=== PATIENT | female | born 1950 | race African-American/Black ===

== ENCOUNTER 2017-09-23 09:38 | Inpatient (IN) ==
[2017-09-23 11:10] LABS: Basophils % 0.5 % (0.0-0.8); Eosinophils # 0.1 10*3/uL (0.0-0.87); Eosinophils % 1.3 % (0.00-10.9); Hemoglobin 10.9 GM/DL (12.0-16.0); Immature Granulocytes % 0.5 %; Immature Granulocytes Absolute 0.03 #; Lymphocytes # 1.4 10*3/uL (1.4-4.0); Lymphocytes % 22.7 % (21.3-54.2); Mean Corpuscular HGB Conc 34.1 GM/DL (32-36); Mean Corpuscular Hemoglobin 32 PG (27-34); Mean Corpuscular Volume 94.1 FL (87-102); Mean Platelet Volume 11.1 FL (9.6-12.0); Monocytes # 0.6 10*3/uL (0.11-0.8); Monocytes % 9.6 % (1.7-12.7); Neutrophils % 65.4 % (38.7-73.9); Platelet Count 238 T/CUMM (130-400); White Blood Count 6.2 T/CUMM (4-12)
[2017-09-23 11:55] LABS: Albumin 2.9 G/DL (3.4-5.0); Bilirubin,Total 0.4 MG/DL (0.2-1.0); Osmolality,Calculated 287.7 MOS/KG (273-304); Total Protein 7.1 G/DL (6.4-8.3)
[2017-09-23 11:57] LABS: Calcium 5.4 MG/DL (8.5-10.1); Potassium 2.5 MMOL/L (3.5-5.1)
[2017-09-23] MEDS: POTASSIUM CHLORIDE 20 MEQ TABLET PO SCH ×2 (13:27→21:14)
[2017-09-23] MEDS ORDERED: GLUCAGON 1 MG VIAL IM PRN (13:35)
[2017-09-23] MEDS ORDERED: POLYETHYLENE GLYCOL POWDER 17 GM PACK PO PRN (13:37)
[2017-09-23] MEDS ORDERED: ACETAMINOPHEN 325 MG TABLET PO PRN (13:44)
[2017-09-23] MEDS ORDERED: ONDANSETRON 4 MG/2 ML VIAL IV PRN (13:44)
[2017-09-23] MEDS: SODIUM CHLORIDE 0.45% 1,000 ML IV SCH (15:24)
[2017-09-23] MEDS: SODIUM CHLOR 0.45% KCL 20 MEQ 20 MEQ/1,000 ML BAG IV SCH (15:24)
[2017-09-23] MEDS: BACITRACIN OINT 0.9 GM PACK TOP SCH (15:41)
[2017-09-23] MEDS: SODIUM HYPOCHLORITE 0.25% IRRIG 473 ML BOTTLE TOP SCH (15:41)
[2017-09-23] MEDS: SKIN HEALING OINT (AQUAPHOR) 50 GM TUBE TOP SCH (15:41)
[2017-09-23] MEDS: HYDROmorphone 2 MG/1 ML VIAL IV PRN (16:35)
[2017-09-23] MEDS ORDERED: LISINOPRIL 5 MG TABLET PO SCH (17:01)
[2017-09-23] MEDS ORDERED: hydroCHLOROthiazide 12.5 MG CAPSULE PO SCH (17:03)
[2017-09-23] MEDS: hydroCHLOROthiazide 12.5 MG CAPSULE PO SCH (17:18)
[2017-09-23] MEDS: LISINOPRIL 5 MG TABLET PO SCH (17:19)
[2017-09-23] MEDS: INSULIN REGULAR 100 UNIT/ML SUBCUT SCH ×2 (17:28→21:12)
[2017-09-23] MEDS: metFORMIN 500 MG TABLET PO SCH (17:30)
[2017-09-23] MEDS: sitaGLIPtin 100 MG TABLET PO SCH (17:30)
[2017-09-23] MEDS: DOCUSATE SODIUM 100 MG CAPSULE PO SCH (18:19)
[2017-09-23] MEDS: LORATADINE 10 MG TABLET PO SCH (18:19)
[2017-09-23] MEDS: ChlordiazePOXIDE/CLIDINIUM 5-2.5 MG CAPSULE PO SCH (18:21)
[2017-09-23] MEDS: LIDOCAINE 5% PATCH TRANSDERM SCH (18:21)
[2017-09-23] MEDS: LINACLOTIDE 145 MCG CAPSULE PO SCH (18:22)
[2017-09-23] MEDS: MELOXICAM 7.5 MG TABLET PO SCH (18:22)
[2017-09-23] MEDS: GABAPENTIN 300 MG CAPSULE PO SCH (18:23)
[2017-09-23] MEDS: CYPROHEPTADINE 4 MG TABLET PO SCH (18:23)
[2017-09-23] MEDS: PANTOPRAZOLE 40 MG TABLET PO SCH (18:24)
[2017-09-23] MEDS: ALLOPURINOL 100 MG TABLET PO SCH (18:24)
[2017-09-23] MEDS: tiZANidine 4 MG TABLET PO SCH (18:24)
[2017-09-23] MEDS: LEVOTHYROXINE 100 MCG VIAL IV SCH (18:26)
[2017-09-23] MEDS ORDERED: TRIAMCINOLONE 0.5% TOP SCH (21:00)
[2017-09-23] MEDS: MINERAL OIL 30 ML UDCUP PO SCH (21:14)
[2017-09-23] MEDS: ALUMINUM/MAGNES/SIMETH MAX STR 30 ML UDCUP PO SCH (21:14)
[2017-09-24] MEDS: SODIUM CHLOR 0.45% KCL 20 MEQ 20 MEQ/1,000 ML BAG IV SCH ×2 (03:27→17:29)
[2017-09-24] MEDS: SODIUM CHLORIDE 0.45% 1,000 ML IV SCH ×2 (03:32→21:00)
[2017-09-24 05:30] LABS: Basophils % 0.7 % (0.0-0.8); Eosinophils # 0.1 10*3/uL (0.0-0.87); Eosinophils % 1.3 % (0.00-10.9); Hematocrit 28.2 VOL% (35.7-47.0); Hemoglobin 9.3 GM/DL (12.0-16.0); Immature Granulocytes % 0.4 %; Immature Granulocytes Absolute 0.02 #; Lymphocytes # 1.5 10*3/uL (1.4-4.0); Lymphocytes % 27.9 % (21.3-54.2); Mean Corpuscular Hemoglobin 31 PG (27-34); Mean Corpuscular Volume 95.3 FL (87-102); Mean Platelet Volume 11.1 FL (9.6-12.0); Monocytes # 0.8 10*3/uL (0.11-0.8); Monocytes % 13.7 % (1.7-12.7); Neutrophils # 3.1 10*3/uL (1.4-7.4); Platelet Count 206 T/CUMM (130-400); Red Blood Count 2.96 MC/CUMM (3.8-5.5); Red Cell Distribution Width 15.8 % (9.3-17.3); White Blood Count 5.5 T/CUMM (4-12)
[2017-09-24] MEDS: LEVOTHYROXINE 100 MCG VIAL IV SCH (06:06)
[2017-09-24 06:31] LABS: Alanine Aminotransferase 18 U/L (13-56); Albumin 2.5 G/DL (3.4-5.0); Alkaline Phosphatase 94 U/L (45-117); Aspartate Amino Transferase 23 U/L (0-37); Bilirubin,Total < 0.39 MG/DL (0.2-1.0); Blood Urea Nitrogen 12 MG/DL (7-18); Glucose 75 MG/DL (74-106); Sodium 143 MMOL/L (136-145); Total Protein 5.7 G/DL (6.4-8.3)
[2017-09-24 06:35] LABS: Calcium < 5.0 MG/DL (8.5-10.1)
[2017-09-24] MEDS: INSULIN REGULAR 100 UNIT/ML SUBCUT SCH ×4 (06:36→21:00)
[2017-09-24] MEDS ORDERED: CYCLOBENZAPRINE 10 MG TABLET PO PRN (07:21)
[2017-09-24] MEDS ORDERED: tiZANidine 4 MG TABLET PO PRN (07:21)
[2017-09-24] MEDS ORDERED: MAGNESIUM CITRATE 300 ML BOTTLE PO ONE (07:30)
[2017-09-24] MEDS ORDERED: PANTOPRAZOLE 40 MG TABLET PO SCH (09:00)
[2017-09-24] MEDS ORDERED: NON-FORMULARY MEDICATION (Esomeprazole Magnesium [Nexium] 40 MG) PO SCH (09:00)
[2017-09-24] MEDS ORDERED: hydroCHLOROthiazide 12.5 MG CAPSULE PO SCH (09:00)
[2017-09-24] MEDS ORDERED: LISINOPRIL 5 MG TABLET PO SCH (09:00)
[2017-09-24] MEDS: DOCUSATE SODIUM 100 MG CAPSULE PO SCH (09:12)
[2017-09-24] MEDS: LORATADINE 10 MG TABLET PO SCH (09:12)
[2017-09-24] MEDS: metFORMIN 500 MG TABLET PO SCH (09:13)
[2017-09-24] MEDS: COLCHICINE 0.6 MG TABLET PO SCH (09:13)
[2017-09-24] MEDS: hydroCHLOROthiazide 12.5 MG CAPSULE PO SCH (09:14)
[2017-09-24] MEDS: POTASSIUM CHLORIDE 20 MEQ TABLET PO SCH ×2 (09:14→20:55)
[2017-09-24] MEDS: sitaGLIPtin 100 MG TABLET PO SCH (09:14)
[2017-09-24] MEDS: ChlordiazePOXIDE/CLIDINIUM 5-2.5 MG CAPSULE PO SCH (09:15)
[2017-09-24] MEDS: LIDOCAINE 5% PATCH TRANSDERM SCH (09:15)
[2017-09-24] MEDS: ENOXAPARIN 30 MG/0.3 ML SYRINGE SUBCUT SCH (09:16)
[2017-09-24] MEDS: LINACLOTIDE 145 MCG CAPSULE PO SCH (09:16)
[2017-09-24] MEDS: PREGABALIN 50 MG CAPSULE PO SCH ×2 (09:17→20:55)
[2017-09-24] MEDS: MELOXICAM 7.5 MG TABLET PO SCH (09:17)
[2017-09-24] MEDS: GABAPENTIN 300 MG CAPSULE PO SCH (09:18)
[2017-09-24] MEDS: CYPROHEPTADINE 4 MG TABLET PO SCH (09:19)
[2017-09-24] MEDS: LISINOPRIL 20 MG TABLET PO SCH (09:19)
[2017-09-24] MEDS: PANTOPRAZOLE 40 MG TABLET PO SCH (09:20)
[2017-09-24] MEDS: CALCIUM CARBONATE CHEW 500 MG TABLET PO SCH ×2 (09:21→20:54)
[2017-09-24] MEDS: LEVOTHYROXINE 200 MCG TABLET PO SCH (09:21)
[2017-09-24] MEDS: PENTOXIFYLLINE 400 MG TABLET PO SCH ×3 (09:21→20:55)
[2017-09-24] MEDS: ALLOPURINOL 100 MG TABLET PO SCH (09:23)
[2017-09-24] MEDS: BACITRACIN OINT 0.9 GM PACK TOP SCH (09:30)
[2017-09-24] MEDS: LISINOPRIL 5 MG TABLET PO SCH (09:36)
[2017-09-24] MEDS: tiZANidine 4 MG TABLET PO SCH (09:37)
[2017-09-24] MEDS: ALUMINUM/MAGNES/SIMETH MAX STR 30 ML UDCUP PO SCH ×2 (10:49→20:55)
[2017-09-24] MEDS: SODIUM HYPOCHLORITE 0.25% IRRIG 473 ML BOTTLE TOP SCH (13:00)
[2017-09-24] MEDS: SKIN HEALING OINT (AQUAPHOR) 50 GM TUBE TOP SCH (13:00)
[2017-09-24] MEDS: HYDROmorphone 2 MG/1 ML VIAL IV PRN (14:53)
[2017-09-24] MEDS: MINERAL OIL 30 ML UDCUP PO SCH (20:53)
[2017-09-25] MEDS: HYDROmorphone 2 MG/1 ML VIAL IV PRN (01:01)
[2017-09-25] MEDS: LEVOTHYROXINE 200 MCG TABLET PO SCH ×2 (06:10→10:19)
[2017-09-25] MEDS: LEVOTHYROXINE 100 MCG VIAL IV SCH ×2 (06:10→06:16)
[2017-09-25] MEDS: SODIUM CHLORIDE 0.45% 1,000 ML IV SCH (06:11)
[2017-09-25 06:16] LABS: Basophils % 0.4 % (0.0-0.8); Eosinophils # 0.1 10*3/uL (0.0-0.87); Hematocrit 29.2 VOL% (35.7-47.0); Hemoglobin 9.7 GM/DL (12.0-16.0); Immature Granulocytes % 0.4 %; Immature Granulocytes Absolute 0.02 #; Lymphocytes # 1.4 10*3/uL (1.4-4.0); Mean Corpuscular HGB Conc 33.2 GM/DL (32-36); Mean Corpuscular Hemoglobin 32 PG (27-34); Mean Corpuscular Volume 95.1 FL (87-102); Mean Platelet Volume 11.6 FL (9.6-12.0); Monocytes # 0.7 10*3/uL (0.11-0.8); Monocytes % 14.3 % (1.7-12.7); Neutrophils % 56.9 % (38.7-73.9); Platelet Count 199 T/CUMM (130-400); Red Blood Count 3.07 MC/CUMM (3.8-5.5); Red Cell Distribution Width 15.7 % (9.3-17.3); White Blood Count 5.2 T/CUMM (4-12)
[2017-09-25 06:54] LABS: Osmolality,Calculated 278.3 MOS/KG (273-304); Potassium 3.9 MMOL/L (3.5-5.1)
[2017-09-25 06:58] LABS: Albumin 2.5 G/DL (3.4-5.0); Bilirubin,Total 0.6 MG/DL (0.2-1.0); Osmolality,Calculated 281.1 MOS/KG (273-304); Total Protein 6.1 G/DL (6.4-8.3)
[2017-09-25 07:04] LABS: Calcium 5.7 MG/DL (8.5-10.1)
[2017-09-25] MEDS ORDERED: VANCOMYCIN 500 MG VIAL ONE (07:13)
[2017-09-25] MEDS ORDERED: THROMBIN TOPICAL (RECOMBINANT) 5,000 UNIT VIAL TOP ONE (07:14)
[2017-09-25] MEDS ORDERED: HEPARIN 5,000 UNIT/1 ML VIAL ONE (07:15)
[2017-09-25] MEDS: INSULIN REGULAR 100 UNIT/ML SUBCUT SCH ×4 (07:15→20:47)
[2017-09-25] MEDS: SODIUM CHLOR 0.45% KCL 20 MEQ 20 MEQ/1,000 ML BAG IV SCH (08:00)
[2017-09-25] MEDS: LISINOPRIL 20 MG TABLET PO SCH (08:00)
[2017-09-25] MEDS ORDERED: VANCOMYCIN INJ 500 MG in SODIUM CHLORIDE 0.9% 100 ML IV ONE (09:00)
[2017-09-25] MEDS: LORATADINE 10 MG TABLET PO SCH (10:16)
[2017-09-25] MEDS: SKIN HEALING OINT (AQUAPHOR) 50 GM TUBE TOP SCH (10:16)
[2017-09-25] MEDS: BACITRACIN OINT 0.9 GM PACK TOP SCH (10:16)
[2017-09-25] MEDS: COLCHICINE 0.6 MG TABLET PO SCH (10:17)
[2017-09-25] MEDS: DOCUSATE SODIUM 100 MG CAPSULE PO SCH (10:17)
[2017-09-25] MEDS: SODIUM HYPOCHLORITE 0.25% IRRIG 473 ML BOTTLE TOP SCH (10:17)
[2017-09-25] MEDS: POTASSIUM CHLORIDE 20 MEQ TABLET PO SCH ×2 (10:17→21:22)
[2017-09-25] MEDS: hydroCHLOROthiazide 12.5 MG CAPSULE PO SCH (10:17)
[2017-09-25] MEDS: sitaGLIPtin 100 MG TABLET PO SCH (10:17)
[2017-09-25] MEDS: ChlordiazePOXIDE/CLIDINIUM 5-2.5 MG CAPSULE PO SCH (10:18)
[2017-09-25] MEDS: PREGABALIN 50 MG CAPSULE PO SCH ×2 (10:18→21:22)
[2017-09-25] MEDS: ENOXAPARIN 30 MG/0.3 ML SYRINGE SUBCUT SCH (10:18)
[2017-09-25] MEDS: MELOXICAM 7.5 MG TABLET PO SCH (10:18)
[2017-09-25] MEDS: LINACLOTIDE 145 MCG CAPSULE PO SCH (10:18)
[2017-09-25] MEDS: LIDOCAINE 5% PATCH TRANSDERM SCH (10:18)
[2017-09-25] MEDS: ALUMINUM/MAGNES/SIMETH MAX STR 30 ML UDCUP PO SCH ×2 (10:19→21:23)
[2017-09-25] MEDS: GABAPENTIN 300 MG CAPSULE PO SCH (10:19)
[2017-09-25] MEDS: CYPROHEPTADINE 4 MG TABLET PO SCH (10:19)
[2017-09-25] MEDS: PANTOPRAZOLE 40 MG TABLET PO SCH (10:19)
[2017-09-25] MEDS: PENTOXIFYLLINE 400 MG TABLET PO SCH ×3 (10:19→21:22)
[2017-09-25] MEDS: CALCIUM CARBONATE CHEW 500 MG TABLET PO SCH ×2 (10:20→21:24)
[2017-09-25] MEDS: tiZANidine 4 MG TABLET PO SCH (10:20)
[2017-09-25] MEDS: ALLOPURINOL 100 MG TABLET PO SCH (10:20)
[2017-09-25] MEDS: POTASSIUM CHLORIDE INJ 10 MEQ in SODIUM CHLORIDE 0.45% 1,000 ML IV SCH (12:50)
[2017-09-25] MEDS: ERGOCALCIFEROL 50,000 UNIT CAPSULE PO SCH (13:00)
[2017-09-25] MEDS: DEXTROSE 50% 25 GM/50 ML VIAL IV PRN ×2 (13:18→16:30)
[2017-09-25] MEDS ORDERED: DEXTROSE 50% 25 GM/50 ML VIAL IV ONE (13:18)
[2017-09-25 13:20] LABS: Apearance,Urine CLEAR (Clear); Bilirubin,Urine Negative (Negative); Blood, Urine Negative (Negative); Glucose,Urine (UA) Negative (Negative); Ketones,Urine Negative (Negative); Nitrite,Urine Negative (Negative); Protein,Urine Negative; RBC,Urine <1 /HPF (0-4); Urine Color Straw (Yellow); Urine Specific Gravity 1.005 (1.001-1.035); Urine Urobilinogen < 2.0 EU/DL (0.2-1.0); WBC,Urine <1 /HPF (0-6)
[2017-09-25 13:26] LABS: Hematocrit 28.4 VOL% (35.7-47.0); Hemoglobin 9.4 GM/DL (12.0-16.0)
[2017-09-25] MEDS ORDERED: HEPARIN 10,000 UNIT/10 ML VIAL ONE (13:29)
[2017-09-25] MEDS ORDERED: PROPOFOL 200 MG/20 ML VIAL IV ONE (13:29)
[2017-09-25] MEDS ORDERED: SEVOFLURANE 1 UNIT/15 MINUTE INH ONE (13:29)
[2017-09-25] MEDS ORDERED: PHENYLEPHRINE 10 MG/1 ML VIAL IV ONE (13:30)
[2017-09-25] MEDS ORDERED: ONDANSETRON 4 MG/2 ML VIAL ONE (13:30)
[2017-09-25] MEDS ORDERED: fentaNYL 100 MCG/2 ML VIAL ONE (13:30)
[2017-09-25] MEDS ORDERED: SODIUM CHLORIDE 0.9% 100 ML IV ONE (13:30)
[2017-09-25] MEDS ORDERED: PROTAMINE SULFATE 50 MG/5 ML VIAL IV ONE (13:30)
[2017-09-25] MEDS ORDERED: ROCURONIUM 100 MG/10 ML VIAL IV ONE (13:30)
[2017-09-25] MEDS ORDERED: LACTATED RINGERS 1,000 ML IV ONE (13:30)
[2017-09-25 14:01] LABS: Osmolality,Calculated 283.8 MOS/KG (273-304); Potassium 3.8 MMOL/L (3.5-5.1)
[2017-09-25 14:28] LABS: Calcium 5.6 MG/DL (8.5-10.1)
[2017-09-25] MEDS: MORPHINE 4 MG/1 ML VIAL IV PRN ×3 (16:46→22:36)
[2017-09-25] MEDS: CLINDAMYCIN INJ 600 MG in PREMIX 1 EACH IV SCH ×2 (16:50→19:31)
[2017-09-25] MEDS: MAGNESIUM SULFATE 1 GM/2 ML VIAL IM SCH ×2 (16:50→21:24)
[2017-09-25] MEDS: ONDANSETRON 4 MG/2 ML VIAL IV PRN (16:50)
[2017-09-25] MEDS: CALCIUM GLUCONATE 2,000 MG in SODIUM CHLORIDE 0.9% 100 ML IV SCH ×2 (17:20→23:11)
[2017-09-25] MEDS: MINERAL OIL 30 ML UDCUP PO SCH (21:23)
[2017-09-26] MEDS: CLINDAMYCIN INJ 600 MG in PREMIX 1 EACH IV SCH ×4 (01:04→20:29)
[2017-09-26] MEDS: MORPHINE 4 MG/1 ML VIAL IV PRN ×3 (02:40→14:20)
[2017-09-26] MEDS: diphenhydrAMINE CAP 25 MG CAPSULE PO PRN ×2 (04:49→15:57)
[2017-09-26 05:15] LABS: Hematocrit 28.2 VOL% (35.7-47.0); Hemoglobin 9.7 GM/DL (12.0-16.0)
[2017-09-26 05:18] LABS: Basophils % 0.4 % (0.0-0.8); Eosinophils # 0.1 10*3/uL (0.0-0.87); Hemoglobin 9.6 GM/DL (12.0-16.0); Immature Granulocytes % 0.4 %; Immature Granulocytes Absolute 0.03 #; Lymphocytes # 0.9 10*3/uL (1.4-4.0); Lymphocytes % 12.2 % (21.3-54.2); Mean Corpuscular HGB Conc 33.1 GM/DL (32-36); Mean Corpuscular Hemoglobin 32 PG (27-34); Mean Corpuscular Volume 95.4 FL (87-102); Mean Platelet Volume 11.4 FL (9.6-12.0); Monocytes # 0.9 10*3/uL (0.11-0.8); Monocytes % 11.4 % (1.7-12.7); Neutrophils # 5.8 10*3/uL (1.4-7.4); Neutrophils % 74.6 % (38.7-73.9); Platelet Count 210 T/CUMM (130-400); Red Blood Count 3.04 MC/CUMM (3.8-5.5); Red Cell Distribution Width 15.8 % (9.3-17.3); White Blood Count 7.7 T/CUMM (4-12)
[2017-09-26] MEDS: CALCIUM GLUCONATE 2,000 MG in SODIUM CHLORIDE 0.9% 100 ML IV SCH (05:29)
[2017-09-26] MEDS: POTASSIUM CHLORIDE INJ 10 MEQ in SODIUM CHLORIDE 0.45% 1,000 ML IV SCH ×2 (05:30→08:00)
[2017-09-26 05:45] LABS: Calcium 7.1 MG/DL (8.5-10.1); Osmolality,Calculated 271.8 MOS/KG (273-304); Potassium 4.9 MMOL/L (3.5-5.1)
[2017-09-26 05:57] LABS: Calcium 7.1 MG/DL (8.5-10.1); Potassium 4.9 MMOL/L (3.5-5.1); Thyroid Stimulating Hormone 9.03 uIU/ml (0.358-3.74)
[2017-09-26] MEDS: INSULIN REGULAR 100 UNIT/ML SUBCUT SCH ×4 (08:00→20:29)
[2017-09-26] MEDS: LEVOTHYROXINE 200 MCG TABLET PO SCH (08:24)
[2017-09-26] MEDS: tiZANidine 4 MG TABLET PO SCH (08:24)
[2017-09-26] MEDS: COLCHICINE 0.6 MG TABLET PO SCH (08:25)
[2017-09-26] MEDS: CALCIUM CARBONATE CHEW 500 MG TABLET PO SCH ×2 (08:25→20:26)
[2017-09-26] MEDS: CLOPIDOGREL 75 MG TABLET PO SCH (08:26)
[2017-09-26] MEDS: PENTOXIFYLLINE 400 MG TABLET PO SCH ×3 (08:26→20:26)
[2017-09-26] MEDS: LISINOPRIL 20 MG TABLET PO SCH (08:26)
[2017-09-26] MEDS: PANTOPRAZOLE 40 MG TABLET PO SCH (08:27)
[2017-09-26] MEDS: PREGABALIN 50 MG CAPSULE PO SCH ×2 (08:27→20:26)
[2017-09-26] MEDS: ALLOPURINOL 100 MG TABLET PO SCH (08:28)
[2017-09-26] MEDS: LORATADINE 10 MG TABLET PO SCH (08:28)
[2017-09-26] MEDS: DOCUSATE SODIUM 100 MG CAPSULE PO SCH (08:28)
[2017-09-26] MEDS: GABAPENTIN 300 MG CAPSULE PO SCH (08:29)
[2017-09-26] MEDS: ASPIRIN CHEW 81 MG TABLET PO SCH (08:29)
[2017-09-26] MEDS: POTASSIUM CHLORIDE 20 MEQ TABLET PO SCH (08:29)
[2017-09-26] MEDS: MELOXICAM 7.5 MG TABLET PO SCH (08:30)
[2017-09-26] MEDS: ChlordiazePOXIDE/CLIDINIUM 5-2.5 MG CAPSULE PO SCH (08:30)
[2017-09-26] MEDS: LIDOCAINE 5% PATCH TRANSDERM SCH ×2 (08:30→11:30)
[2017-09-26] MEDS: LINACLOTIDE 145 MCG CAPSULE PO SCH (08:30)
[2017-09-26] MEDS: ERGOCALCIFEROL 50,000 UNIT CAPSULE PO SCH (08:31)
[2017-09-26] MEDS: ALUMINUM/MAGNES/SIMETH MAX STR 30 ML UDCUP PO SCH ×2 (08:56→20:26)
[2017-09-26] MEDS ORDERED: ENOXAPARIN 40 MG/0.4 ML SYRINGE SUBCUT SCH (09:00)
[2017-09-26] MEDS: SKIN HEALING OINT (AQUAPHOR) 50 GM TUBE TOP SCH (11:30)
[2017-09-26] MEDS: SODIUM HYPOCHLORITE 0.25% IRRIG 473 ML BOTTLE TOP SCH (11:30)
[2017-09-26] MEDS: BACITRACIN OINT 0.9 GM PACK TOP SCH (11:30)
[2017-09-26] MEDS: MEPERIDINE 25 MG/1 ML VIAL IV PRN (20:26)
[2017-09-26] MEDS: MINERAL OIL 30 ML UDCUP PO SCH (20:27)
[2017-09-27] MEDS: CLINDAMYCIN INJ 600 MG in PREMIX 1 EACH IV SCH (01:11)
[2017-09-27 05:23] LABS: Basophils % 0.3 % (0.0-0.8); Eosinophils % 0.4 % (0.00-10.9); Hematocrit 25.5 VOL% (35.7-47.0); Hematocrit 25.6 VOL% (35.7-47.0); Hemoglobin 8.5 GM/DL (12.0-16.0); Hemoglobin 8.7 GM/DL (12.0-16.0); Immature Granulocytes % 1.3 %; Lymphocytes # 1.2 10*3/uL (1.4-4.0); Lymphocytes % 15.2 % (21.3-54.2); Mean Corpuscular HGB Conc 34.1 GM/DL (32-36); Mean Corpuscular Hemoglobin 33 PG (27-34); Mean Corpuscular Volume 95.9 FL (87-102); Mean Platelet Volume 11.5 FL (9.6-12.0); Monocytes # 0.9 10*3/uL (0.11-0.8); Monocytes % 11.4 % (1.7-12.7); Neutrophils # 5.5 10*3/uL (1.4-7.4); Neutrophils % 71.4 % (38.7-73.9); Platelet Count 185 T/CUMM (130-400); Red Blood Count 2.66 MC/CUMM (3.8-5.5); Red Cell Distribution Width 15.8 % (9.3-17.3); White Blood Count 7.6 T/CUMM (4-12)
[2017-09-27 05:50] LABS: Calcium 7.7 MG/DL (8.5-10.1); Potassium 5.6 MMOL/L (3.5-5.1)
[2017-09-27] MEDS: ONDANSETRON 4 MG/2 ML VIAL IV PRN (06:05)
[2017-09-27] MEDS: MEPERIDINE 25 MG/1 ML VIAL IV PRN ×3 (06:05→19:12)
[2017-09-27] MEDS: INSULIN REGULAR 100 UNIT/ML SUBCUT SCH ×4 (08:32→21:03)
[2017-09-27] MEDS: SKIN HEALING OINT (AQUAPHOR) 50 GM TUBE TOP SCH (09:13)
[2017-09-27] MEDS: BACITRACIN OINT 0.9 GM PACK TOP SCH (09:13)
[2017-09-27] MEDS: LISINOPRIL 20 MG TABLET PO SCH (10:38)
[2017-09-27] MEDS: DOCUSATE SODIUM 100 MG CAPSULE PO SCH (10:38)
[2017-09-27] MEDS: PENTOXIFYLLINE 400 MG TABLET PO SCH ×3 (10:38→20:55)
[2017-09-27] MEDS: ERGOCALCIFEROL 50,000 UNIT CAPSULE PO SCH (10:38)
[2017-09-27] MEDS: PREGABALIN 50 MG CAPSULE PO SCH ×2 (10:38→20:55)
[2017-09-27] MEDS: ChlordiazePOXIDE/CLIDINIUM 5-2.5 MG CAPSULE PO SCH (10:38)
[2017-09-27] MEDS: CALCIUM CARBONATE CHEW 500 MG TABLET PO SCH ×2 (10:38→20:56)
[2017-09-27] MEDS: LEVOTHYROXINE 200 MCG TABLET PO SCH (10:39)
[2017-09-27] MEDS: CLOPIDOGREL 75 MG TABLET PO SCH (10:39)
[2017-09-27] MEDS: CIPROFLOXACIN 500 MG TABLET PO SCH ×2 (10:39→20:55)
[2017-09-27] MEDS: tiZANidine 4 MG TABLET PO SCH (10:39)
[2017-09-27] MEDS: ASPIRIN CHEW 81 MG TABLET PO SCH (10:39)
[2017-09-27] MEDS: GABAPENTIN 300 MG CAPSULE PO SCH (10:39)
[2017-09-27] MEDS: LORATADINE 10 MG TABLET PO SCH (10:39)
[2017-09-27] MEDS: ALLOPURINOL 100 MG TABLET PO SCH (10:39)
[2017-09-27] MEDS: COLCHICINE 0.6 MG TABLET PO SCH (10:40)
[2017-09-27] MEDS: ALUMINUM/MAGNES/SIMETH MAX STR 30 ML UDCUP PO SCH ×2 (10:40→20:56)
[2017-09-27] MEDS: PANTOPRAZOLE 40 MG TABLET PO SCH (10:40)
[2017-09-27] MEDS: MELOXICAM 7.5 MG TABLET PO SCH (10:40)
[2017-09-27] MEDS: LIDOCAINE 5% PATCH TRANSDERM SCH (10:40)
[2017-09-27] MEDS: ENOXAPARIN 40 MG/0.4 ML SYRINGE SUBCUT SCH (10:41)
[2017-09-27] MEDS: LINACLOTIDE 145 MCG CAPSULE PO SCH (10:41)
[2017-09-27] MEDS: SODIUM HYPOCHLORITE 0.25% IRRIG 473 ML BOTTLE TOP SCH (15:13)
[2017-09-27] MEDS: MINERAL OIL 30 ML UDCUP PO SCH (20:53)
[2017-09-28 03:23] LABS: Basophils % 0.3 % (0.0-0.8); Eosinophils # 0.1 10*3/uL (0.0-0.87); Eosinophils % 0.7 % (0.00-10.9); Hematocrit 27.8 VOL% (35.7-47.0); Hemoglobin 9.3 GM/DL (12.0-16.0); Immature Granulocytes % 0.4 %; Immature Granulocytes Absolute 0.03 #; Lymphocytes # 1.2 10*3/uL (1.4-4.0); Lymphocytes % 16.1 % (21.3-54.2); Mean Corpuscular HGB Conc 33.5 GM/DL (32-36); Mean Corpuscular Hemoglobin 32 PG (27-34); Mean Corpuscular Volume 95.9 FL (87-102); Mean Platelet Volume 11.5 FL (9.6-12.0); Monocytes % 13.4 % (1.7-12.7); Neutrophils # 5.1 10*3/uL (1.4-7.4); Neutrophils % 69.1 % (38.7-73.9); Platelet Count 219 T/CUMM (130-400); Red Cell Distribution Width 15.4 % (9.3-17.3); White Blood Count 7.3 T/CUMM (4-12)
[2017-09-28 03:54] LABS: Calcium 8.1 MG/DL (8.5-10.1); Osmolality,Calculated 268.2 MOS/KG (273-304); Potassium 5.4 MMOL/L (3.5-5.1)
[2017-09-28] MEDS: MEPERIDINE 25 MG/1 ML VIAL IV PRN ×2 (07:41→20:56)
[2017-09-28] MEDS: SODIUM HYPOCHLORITE 0.25% IRRIG 473 ML BOTTLE TOP SCH (10:00)
[2017-09-28] MEDS: MELOXICAM 7.5 MG TABLET PO SCH (10:08)
[2017-09-28] MEDS: CALCIUM CARBONATE CHEW 500 MG TABLET PO SCH ×2 (10:09→20:55)
[2017-09-28] MEDS: PREGABALIN 50 MG CAPSULE PO SCH ×2 (10:09→21:02)
[2017-09-28] MEDS: DOCUSATE SODIUM 100 MG CAPSULE PO SCH (10:09)
[2017-09-28] MEDS: tiZANidine 4 MG TABLET PO SCH (10:09)
[2017-09-28] MEDS: ERGOCALCIFEROL 50,000 UNIT CAPSULE PO SCH (10:09)
[2017-09-28] MEDS: ChlordiazePOXIDE/CLIDINIUM 5-2.5 MG CAPSULE PO SCH (10:09)
[2017-09-28] MEDS: ALUMINUM/MAGNES/SIMETH MAX STR 30 ML UDCUP PO SCH ×2 (10:09→21:03)
[2017-09-28] MEDS: ALLOPURINOL 100 MG TABLET PO SCH (10:10)
[2017-09-28] MEDS: COLCHICINE 0.6 MG TABLET PO SCH (10:10)
[2017-09-28] MEDS: LEVOTHYROXINE 200 MCG TABLET PO SCH (10:10)
[2017-09-28] MEDS: PENTOXIFYLLINE 400 MG TABLET PO SCH ×3 (10:10→21:03)
[2017-09-28] MEDS: ASPIRIN CHEW 81 MG TABLET PO SCH (10:11)
[2017-09-28] MEDS: CIPROFLOXACIN 500 MG TABLET PO SCH ×2 (10:11→21:03)
[2017-09-28] MEDS: SKIN HEALING OINT (AQUAPHOR) 50 GM TUBE TOP SCH (10:11)
[2017-09-28] MEDS: ENOXAPARIN 40 MG/0.4 ML SYRINGE SUBCUT SCH (10:12)
[2017-09-28] MEDS: BACITRACIN OINT 0.9 GM PACK TOP SCH (10:12)
[2017-09-28] MEDS: LISINOPRIL 20 MG TABLET PO SCH (10:13)
[2017-09-28] MEDS: LINACLOTIDE 145 MCG CAPSULE PO SCH (10:15)
[2017-09-28] MEDS: LORATADINE 10 MG TABLET PO SCH (10:30)
[2017-09-28] MEDS: CLOPIDOGREL 75 MG TABLET PO SCH (10:35)
[2017-09-28] MEDS: GABAPENTIN 300 MG CAPSULE PO SCH (10:35)
[2017-09-28] MEDS: PANTOPRAZOLE 40 MG TABLET PO SCH (10:35)
[2017-09-28] MEDS: INSULIN REGULAR 100 UNIT/ML SUBCUT SCH ×2 (15:53→20:28)
[2017-09-28] MEDS: LIDOCAINE 5% PATCH TRANSDERM SCH (15:55)
[2017-09-28] MEDS: MINERAL OIL 30 ML UDCUP PO SCH (21:03)
[2017-09-29 06:08] LABS: Calcium 7.6 MG/DL (8.5-10.1); Osmolality,Calculated 274.8 MOS/KG (273-304); Potassium 5.3 MMOL/L (3.5-5.1)
[2017-09-29] MEDS: MEPERIDINE 25 MG/1 ML VIAL IV PRN ×2 (06:33→11:16)
[2017-09-29] MEDS: INSULIN REGULAR 100 UNIT/ML SUBCUT SCH ×4 (09:36→22:47)
[2017-09-29] MEDS: PREGABALIN 50 MG CAPSULE PO SCH ×2 (10:45→21:26)
[2017-09-29] MEDS: ChlordiazePOXIDE/CLIDINIUM 5-2.5 MG CAPSULE PO SCH (10:45)
[2017-09-29] MEDS: ALUMINUM/MAGNES/SIMETH MAX STR 30 ML UDCUP PO SCH ×2 (10:45→22:48)
[2017-09-29] MEDS: ENOXAPARIN 40 MG/0.4 ML SYRINGE SUBCUT SCH (10:45)
[2017-09-29] MEDS: PANTOPRAZOLE 40 MG TABLET PO SCH (10:45)
[2017-09-29] MEDS: CIPROFLOXACIN 500 MG TABLET PO SCH ×2 (10:46→21:26)
[2017-09-29] MEDS: DOCUSATE SODIUM 100 MG CAPSULE PO SCH ×2 (10:46→21:26)
[2017-09-29] MEDS: ERGOCALCIFEROL 50,000 UNIT CAPSULE PO SCH (10:46)
[2017-09-29] MEDS: ALLOPURINOL 100 MG TABLET PO SCH (10:46)
[2017-09-29] MEDS: PENTOXIFYLLINE 400 MG TABLET PO SCH ×3 (10:46→21:26)
[2017-09-29] MEDS: CLOPIDOGREL 75 MG TABLET PO SCH (10:46)
[2017-09-29] MEDS: GABAPENTIN 300 MG CAPSULE PO SCH (10:47)
[2017-09-29] MEDS: COLCHICINE 0.6 MG TABLET PO SCH (10:47)
[2017-09-29] MEDS: tiZANidine 4 MG TABLET PO SCH (10:48)
[2017-09-29] MEDS: CALCIUM CARBONATE CHEW 500 MG TABLET PO SCH ×2 (10:48→21:26)
[2017-09-29] MEDS: LEVOTHYROXINE 200 MCG TABLET PO SCH (10:48)
[2017-09-29] MEDS: ASPIRIN CHEW 81 MG TABLET PO SCH (10:51)
[2017-09-29] MEDS: MELOXICAM 7.5 MG TABLET PO SCH (10:56)
[2017-09-29] MEDS: LORATADINE 10 MG TABLET PO SCH (10:56)
[2017-09-29] MEDS: LIDOCAINE 5% PATCH TRANSDERM SCH (10:57)
[2017-09-29] MEDS: LINACLOTIDE 145 MCG CAPSULE PO SCH (11:02)
[2017-09-29] MEDS: LISINOPRIL 20 MG TABLET PO SCH (11:02)
[2017-09-29] MEDS: SKIN HEALING OINT (AQUAPHOR) 50 GM TUBE TOP SCH (11:46)
[2017-09-29] MEDS: BACITRACIN OINT 0.9 GM PACK TOP SCH (11:47)
[2017-09-29] MEDS: SODIUM HYPOCHLORITE 0.25% IRRIG 473 ML BOTTLE TOP SCH (11:47)
[2017-09-29] MEDS ORDERED: SODIUM PHOSPHATE ENEMA 133 ML BOTTLE RECTAL PRN (12:21)
[2017-09-29] MEDS ORDERED: ERGOCALCIFEROL 50,000 UNIT CAPSULE PO SCH (16:00)
[2017-09-29] MEDS: POLYETHYLENE GLYCOL POWDER 17 GM PACK PO SCH (21:25)
[2017-09-29] MEDS: MINERAL OIL 30 ML UDCUP PO SCH (22:48)
[2017-09-30] MEDS: ONDANSETRON 4 MG/2 ML VIAL IV PRN ×3 (03:32→09:25)
[2017-09-30] MEDS: INSULIN REGULAR 100 UNIT/ML SUBCUT SCH ×4 (08:53→21:08)
[2017-09-30] MEDS: ENOXAPARIN 40 MG/0.4 ML SYRINGE SUBCUT SCH (09:28)
[2017-09-30] MEDS: PREGABALIN 50 MG CAPSULE PO SCH (09:28)
[2017-09-30] MEDS: CALCIUM CARBONATE CHEW 500 MG TABLET PO SCH ×2 (09:29→21:04)
[2017-09-30] MEDS: LEVOTHYROXINE 200 MCG TABLET PO SCH (09:30)
[2017-09-30] MEDS: LISINOPRIL 20 MG TABLET PO SCH (09:30)
[2017-09-30] MEDS: COLCHICINE 0.6 MG TABLET PO SCH (09:30)
[2017-09-30] MEDS: LORATADINE 10 MG TABLET PO SCH (09:30)
[2017-09-30] MEDS: MELOXICAM 7.5 MG TABLET PO SCH (09:30)
[2017-09-30] MEDS: ASPIRIN CHEW 81 MG TABLET PO SCH (09:32)
[2017-09-30] MEDS: tiZANidine 4 MG TABLET PO SCH (09:33)
[2017-09-30] MEDS: GABAPENTIN 300 MG CAPSULE PO SCH (09:33)
[2017-09-30] MEDS: CLOPIDOGREL 75 MG TABLET PO SCH (09:33)
[2017-09-30] MEDS: ChlordiazePOXIDE/CLIDINIUM 5-2.5 MG CAPSULE PO SCH (09:33)
[2017-09-30] MEDS: CIPROFLOXACIN 500 MG TABLET PO SCH ×2 (09:33→21:04)
[2017-09-30] MEDS: PENTOXIFYLLINE 400 MG TABLET PO SCH ×3 (09:33→21:04)
[2017-09-30] MEDS: ALLOPURINOL 100 MG TABLET PO SCH (09:33)
[2017-09-30] MEDS: DOCUSATE SODIUM 100 MG CAPSULE PO SCH ×2 (09:34→21:04)
[2017-09-30 09:53] LABS: Alanine Aminotransferase 15 U/L (13-56); Albumin 2.6 G/DL (3.4-5.0); Alkaline Phosphatase 105 U/L (45-117); Aspartate Amino Transferase 18 U/L (0-37); Bilirubin,Total < 0.39 MG/DL (0.2-1.0); Blood Urea Nitrogen 25 MG/DL (7-18); Calcium 8.6 MG/DL (8.5-10.1); Glucose 90 MG/DL (74-106); Sodium 137 MMOL/L (136-145); Total Protein 6.7 G/DL (6.4-8.3)
[2017-09-30 09:54] LABS: Osmolality,Calculated 276.8 MOS/KG (273-304); Potassium 5.2 MMOL/L (3.5-5.1)
[2017-09-30] MEDS: LINACLOTIDE 145 MCG CAPSULE PO SCH (12:13)
[2017-09-30] MEDS: ALUMINUM/MAGNES/SIMETH MAX STR 30 ML UDCUP PO SCH ×2 (12:13→21:08)
[2017-09-30] MEDS: POLYETHYLENE GLYCOL POWDER 17 GM PACK PO SCH ×2 (12:13→21:08)
[2017-09-30] MEDS: LIDOCAINE 5% PATCH TRANSDERM SCH (12:15)
[2017-09-30] MEDS: SODIUM HYPOCHLORITE 0.25% IRRIG 473 ML BOTTLE TOP SCH (12:51)
[2017-09-30] MEDS: BACITRACIN OINT 0.9 GM PACK TOP SCH (12:51)
[2017-09-30] MEDS: SKIN HEALING OINT (AQUAPHOR) 50 GM TUBE TOP SCH (12:51)
[2017-09-30] MEDS: PANTOPRAZOLE 40 MG TABLET PO SCH (12:52)
[2017-09-30] MEDS: METHYLNALTREXONE 12 MG/0.6 ML VIAL SUBCUT SCH (14:06)
[2017-09-30] MEDS ORDERED: traMADol 50 MG TABLET PO PRN (16:11)
[2017-09-30 17:14] LABS: Hematocrit 26.9 VOL% (35.7-47.0); Hemoglobin 8.6 GM/DL (12.0-16.0)
[2017-09-30] MEDS: DEXTROSE 50% 25 GM/50 ML VIAL IV PRN (20:02)
[2017-09-30] MEDS: MINERAL OIL 30 ML UDCUP PO SCH (21:08)
[2017-10-01 06:01] LABS: Basophils % 0.4 % (0.0-0.8); Eosinophils # 0.1 10*3/uL (0.0-0.87); Eosinophils % 1.2 % (0.00-10.9); Hematocrit 25.6 VOL% (35.7-47.0); Hemoglobin 8.2 GM/DL (12.0-16.0); Immature Granulocytes % 0.4 %; Immature Granulocytes Absolute 0.02 #; Lymphocytes # 1.4 10*3/uL (1.4-4.0); Lymphocytes % 27.4 % (21.3-54.2); Mean Corpuscular Hemoglobin 32 PG (27-34); Mean Corpuscular Volume 98.8 FL (87-102); Monocytes # 0.8 10*3/uL (0.11-0.8); Monocytes % 15.1 % (1.7-12.7); Neutrophils # 2.8 10*3/uL (1.4-7.4); Neutrophils % 55.5 % (38.7-73.9); Platelet Count 257 T/CUMM (130-400); Red Blood Count 2.59 MC/CUMM (3.8-5.5); Red Cell Distribution Width 15.5 % (9.3-17.3)
[2017-10-01 06:25] LABS: Band Neutrophils 1 % (0-10); Eosinophils 1 % (0-10); Lymphocytes 32 % (20-55); Platelet Estimate Adequate; Segmented Neutrophils 49 % (50-85); Total Cells Counted 100
[2017-10-01 06:26] LABS: Giant Platelets Few; Hypochromasia 1+; Ovalocytes Slight
[2017-10-01 06:33] LABS: Albumin 2.3 G/DL (3.4-5.0); Bilirubin,Total 0.7 MG/DL (0.2-1.0); Calcium 7.5 MG/DL (8.5-10.1); Osmolality,Calculated 285.3 MOS/KG (273-304); Potassium 5.1 MMOL/L (3.5-5.1); Total Protein 5.6 G/DL (6.4-8.3)
[2017-10-01] MEDS: LISINOPRIL 20 MG TABLET PO SCH (09:54)
[2017-10-01] MEDS: INSULIN REGULAR 100 UNIT/ML SUBCUT SCH ×2 (09:54→13:40)
[2017-10-01] MEDS: ENOXAPARIN 40 MG/0.4 ML SYRINGE SUBCUT SCH (09:55)
[2017-10-01] MEDS: ALUMINUM/MAGNES/SIMETH MAX STR 30 ML UDCUP PO SCH (09:55)
[2017-10-01] MEDS: CALCIUM CARBONATE CHEW 500 MG TABLET PO SCH ×2 (09:55→10:08)
[2017-10-01] MEDS: LEVOTHYROXINE 200 MCG TABLET PO SCH (09:56)
[2017-10-01] MEDS: CIPROFLOXACIN 500 MG TABLET PO SCH (09:56)
[2017-10-01] MEDS: CLOPIDOGREL 75 MG TABLET PO SCH (09:56)
[2017-10-01] MEDS: tiZANidine 4 MG TABLET PO SCH (09:56)
[2017-10-01] MEDS: PENTOXIFYLLINE 400 MG TABLET PO SCH (09:56)
[2017-10-01] MEDS: COLCHICINE 0.6 MG TABLET PO SCH ×2 (09:56→10:08)
[2017-10-01] MEDS: DOCUSATE SODIUM 100 MG CAPSULE PO SCH (09:56)
[2017-10-01] MEDS: MELOXICAM 7.5 MG TABLET PO SCH ×2 (09:56→10:09)
[2017-10-01] MEDS: PANTOPRAZOLE 40 MG TABLET PO SCH (09:56)
[2017-10-01] MEDS: GABAPENTIN 300 MG CAPSULE PO SCH (09:56)
[2017-10-01] MEDS: ALLOPURINOL 100 MG TABLET PO SCH (09:56)
[2017-10-01] MEDS: SODIUM HYPOCHLORITE 0.25% IRRIG 473 ML BOTTLE TOP SCH (09:57)
[2017-10-01] MEDS: ASPIRIN CHEW 81 MG TABLET PO SCH (09:57)
[2017-10-01] MEDS: LORATADINE 10 MG TABLET PO SCH (09:57)
[2017-10-01] MEDS: POLYETHYLENE GLYCOL POWDER 17 GM PACK PO SCH (09:57)
[2017-10-01] MEDS: SKIN HEALING OINT (AQUAPHOR) 50 GM TUBE TOP SCH (09:57)
[2017-10-01] MEDS: BACITRACIN OINT 0.9 GM PACK TOP SCH (09:57)
[2017-10-01] MEDS: LIDOCAINE 5% PATCH TRANSDERM SCH (09:57)
[2017-10-01] MEDS: METHYLNALTREXONE 12 MG/0.6 ML VIAL SUBCUT SCH (09:58)
[2017-10-01 12:28] VITALS: BP 107/66
== END 2017-10-01 13:13 | disposition swing bed (61) | DRG 253 ==
LOC: N.3E
PROVIDERS: ADMIT Specialist; ATTEND Specialist

== ENCOUNTER 2017-10-03 11:11 | Inpatient (IN) ==
[2017-10-03] MEDS ORDERED: NALOXONE 0.4 MG/ML VIAL ONE (11:33)
[2017-10-03] MEDS ORDERED: SODIUM CHLORIDE 0.9% 2,200 ML IV ONE (11:36)
[2017-10-03 11:46] LABS: Basophils % 0.4 % (0.0-0.8); Eosinophils # 0.1 10*3/uL (0.0-0.87); Eosinophils % 0.9 % (0.00-10.9); Hematocrit 23.9 VOL% (35.7-47.0); Hemoglobin 7.7 GM/DL (12.0-16.0); Immature Granulocytes % 0.6 %; Immature Granulocytes Absolute 0.03 #; Lymphocytes # 1.8 10*3/uL (1.4-4.0); Lymphocytes % 33.5 % (21.3-54.2); Mean Corpuscular HGB Conc 32.2 GM/DL (32-36); Mean Corpuscular Hemoglobin 32 PG (27-34); Mean Platelet Volume 10.5 FL (9.6-12.0); Monocytes # 0.7 10*3/uL (0.11-0.8); Monocytes % 13.4 % (1.7-12.7); Neutrophils # 2.8 10*3/uL (1.4-7.4); Neutrophils % 51.2 % (38.7-73.9); Platelet Count 252 T/CUMM (130-400); Red Blood Count 2.39 MC/CUMM (3.8-5.5); Red Cell Distribution Width 15.9 % (9.3-17.3); White Blood Count 5.4 T/CUMM (4-12)
[2017-10-03 11:56] LABS: INR 1.1; PT Patient Result 11.3 SECS; Partial Thromboplastin Time 32.7 SECS (0-40)
[2017-10-03 12:04] LABS: Lactic Acid 1.3 MMOL/L (0.4-2.0)
[2017-10-03 12:04] LABS: Apearance,Urine CLEAR (Clear); Bilirubin,Urine Negative (Negative); Blood, Urine Negative (Negative); Glucose,Urine (UA) Negative (Negative); Ketones,Urine Negative (Negative); Mucus,Urine Occasional /LPF (Occasional); Nitrite,Urine Negative (Negative); Protein,Urine Negative; RBC,Urine 1 /HPF (0-4); Urine Color Yellow (Yellow); Urine Urobilinogen < 2.0 EU/DL (0.2-1.0); WBC,Urine 1 /HPF (0-6)
[2017-10-03 12:06] LABS: Alanine Aminotransferase 13 U/L (13-56); Albumin 2.1 G/DL (3.4-5.0); Alkaline Phosphatase 79 U/L (45-117); Aspartate Amino Transferase 13 U/L (0-37); Bilirubin,Total < 0.39 MG/DL (0.2-1.0); Blood Urea Nitrogen 20 MG/DL (7-18); Glucose 129 MG/DL (74-106); Osmolality,Calculated 285.3 MOS/KG (273-304); Potassium 4.6 MMOL/L (3.5-5.1); Sodium 141 MMOL/L (136-145); Total Protein 5.8 G/DL (6.4-8.3)
[2017-10-03 12:08] LABS: Band Neutrophils 1 % (0-10); Lymphocytes 33 % (20-55); Segmented Neutrophils 58 % (50-85); Total Cells Counted 100
[2017-10-03 12:09] LABS: Atypical Lymphocytes Few; Hypochromasia 1+; Macrocytosis Slight; Platelet Estimate Normal
[2017-10-03] MEDS ORDERED: LEVOFLOXACIN INJ 500 MG in PREMIX 1 EACH IV STA (13:07)
[2017-10-03] MEDS ORDERED: LEVOFLOXACIN INJ 100 ML IV ONE (13:35)
[2017-10-03] MEDS ORDERED: ALBUTEROL 2.5 MG/3 ML NEB RESP TX PRN (13:48)
[2017-10-03] MEDS ORDERED: ONDANSETRON 4 MG/2 ML VIAL IV PRN (13:48)
[2017-10-03] MEDS ORDERED: SODIUM CHLORIDE 0.9% 1,000 ML IV PRN (14:02)
[2017-10-03 14:08] LABS: % Iron Saturation 16.4 % (18-50); Ferritin 89.3 ng/ml (8-252)
[2017-10-03 15:26] LABS: Folate > 24.0 NG/ML (5.4-24.0); Vitamin B12 195 PG/ML (211-911)
[2017-10-03] MEDS ORDERED: DEXTROSE 50% 25 GM/50 ML VIAL IV PRN ×2 (15:39→18:12)
[2017-10-03] MEDS ORDERED: GLUCAGON 1 MG VIAL IM PRN ×2 (15:39→18:12)
[2017-10-03] MEDS ORDERED: INSULIN LISPRO 100 UNIT/ML SUBCUT SCH (16:30)
[2017-10-03] MEDS ORDERED: VANCOMYCIN INJ 1,250 MG in SODIUM CHLORIDE 0.9% 250 ML IV ONE (17:00)
[2017-10-03] MEDS ORDERED: SKIN HEALING OINT (AQUAPHOR) 50 GM TUBE TOP PRN (17:06)
[2017-10-03] MEDS ORDERED: CHLORHEXIDINE 4% SOLN 118 ML BOTTLE TOP ONE (17:06)
[2017-10-03] MEDS: VANCOMYCIN INJ 1,250 MG in SODIUM CHLORIDE 0.9% 250 ML IV SCH (18:33)
[2017-10-03] MEDS: AZTREONAM 1,000 MG in SODIUM CHLORIDE 0.9% 100 ML IV SCH (18:33)
[2017-10-03] MEDS: SODIUM CHLORIDE 0.9% 1,000 ML IV SCH (18:33)
[2017-10-03] MEDS: INSULIN LISPRO 100 UNIT/ML SUBCUT SCH (21:33)
[2017-10-03] MEDS: PANTOPRAZOLE 40 MG VIAL IV SCH (21:58)
[2017-10-04] MEDS: SODIUM CHLORIDE 0.9% 1,000 ML IV SCH ×3 (03:13→14:15)
[2017-10-04 04:37] LABS: Basophils % 0.5 % (0.0-0.8); Eosinophils # 0.1 10*3/uL (0.0-0.87); Eosinophils % 1.3 % (0.00-10.9); Hemoglobin 9.7 GM/DL (12.0-16.0); Immature Granulocytes % 0.5 %; Immature Granulocytes Absolute 0.02 #; Lymphocytes # 1.3 10*3/uL (1.4-4.0); Lymphocytes % 31.9 % (21.3-54.2); Mean Corpuscular HGB Conc 32.3 GM/DL (32-36); Mean Corpuscular Hemoglobin 30 PG (27-34); Mean Corpuscular Volume 92.9 FL (87-102); Mean Platelet Volume 10.6 FL (9.6-12.0); Monocytes # 0.6 10*3/uL (0.11-0.8); Monocytes % 14.1 % (1.7-12.7); Neutrophils # 2.1 10*3/uL (1.4-7.4); Neutrophils % 51.7 % (38.7-73.9); Platelet Count 241 T/CUMM (130-400); Red Blood Count 3.23 MC/CUMM (3.8-5.5); Red Cell Distribution Width 18.6 % (9.3-17.3)
[2017-10-04 04:45] LABS: INR 1.1; PT Patient Result 11.3 SECS
[2017-10-04 05:03] LABS: Calcium 7.9 MG/DL (8.5-10.1); Osmolality,Calculated 285.8 MOS/KG (273-304); Potassium 4.5 MMOL/L (3.5-5.1)
[2017-10-04] MEDS: AZTREONAM 1,000 MG in SODIUM CHLORIDE 0.9% 100 ML IV SCH (05:11)
[2017-10-04 05:13] LABS: Free T4 (Free Thyroxine) 1.8 NG/DL (0.76-1.46); Thyroid Stimulating Hormone 0.616 uIU/ml (0.358-3.74)
[2017-10-04] MEDS: INSULIN LISPRO 100 UNIT/ML SUBCUT SCH ×4 (08:22→20:57)
[2017-10-04] MEDS: POLYETHYLENE GLYCOL POWDER 17 GM PACK PO SCH (09:19)
[2017-10-04] MEDS: PANTOPRAZOLE 40 MG VIAL IV SCH ×2 (09:20→20:55)
[2017-10-04] MEDS: MAGNESIUM CHLORIDE 64 MG TABLET PO SCH (09:20)
[2017-10-04] MEDS: VANCOMYCIN INJ 1,250 MG in SODIUM CHLORIDE 0.9% 250 ML IV SCH (11:05)
[2017-10-04] MEDS: CYANOCOBALAMIN 1000 MCG/1 ML VIAL IM SCH (17:26)
[2017-10-04] MEDS: AZTREONAM 1,000 MG in SYRINGE 1 EACH IV SCH (17:41)
[2017-10-04] MEDS: ACETAMINOPHEN 325 MG TABLET PO PRN (22:00)
[2017-10-05] MEDS: SODIUM CHLORIDE 0.9% 1,000 ML IV SCH ×3 (02:16→17:54)
[2017-10-05] MEDS: AZTREONAM 1,000 MG in SYRINGE 1 EACH IV SCH ×2 (05:22→17:34)
[2017-10-05] MEDS: VANCOMYCIN INJ 1,250 MG in SODIUM CHLORIDE 0.9% 250 ML IV SCH (05:31)
[2017-10-05] MEDS: INSULIN LISPRO 100 UNIT/ML SUBCUT SCH ×4 (07:36→21:11)
[2017-10-05] MEDS: POLYETHYLENE GLYCOL POWDER 17 GM PACK PO SCH (09:35)
[2017-10-05] MEDS: MAGNESIUM CHLORIDE 64 MG TABLET PO SCH (09:35)
[2017-10-05] MEDS: PANTOPRAZOLE 40 MG VIAL IV SCH ×2 (09:35→21:11)
[2017-10-05] MEDS: ACETAMINOPHEN 325 MG TABLET PO PRN (12:59)
[2017-10-05] MEDS: LISINOPRIL 20 MG TABLET PO SCH (17:34)
[2017-10-06] MEDS: SODIUM CHLORIDE 0.9% 1,000 ML IV SCH ×3 (05:07→17:59)
[2017-10-06] MEDS: AZTREONAM 1,000 MG in SYRINGE 1 EACH IV SCH ×2 (06:45→18:30)
[2017-10-06] MEDS: INSULIN LISPRO 100 UNIT/ML SUBCUT SCH ×4 (07:16→20:43)
[2017-10-06] MEDS: POLYETHYLENE GLYCOL POWDER 17 GM PACK PO SCH (08:56)
[2017-10-06] MEDS: CYANOCOBALAMIN 1000 MCG/1 ML VIAL IM SCH (08:57)
[2017-10-06] MEDS: LISINOPRIL 20 MG TABLET PO SCH (09:00)
[2017-10-06] MEDS: PANTOPRAZOLE 40 MG VIAL IV SCH ×2 (09:00→20:47)
[2017-10-06] MEDS ORDERED: LISINOPRIL 20 MG TABLET PO SCH ×2 (09:00→17:16)
[2017-10-06] MEDS: MAGNESIUM CHLORIDE 64 MG TABLET PO SCH (09:08)
[2017-10-06] MEDS: hydrALAZINE 20 MG/1 ML VIAL IV PRN (12:46)
[2017-10-06] MEDS ORDERED: traZODone 50 MG TABLET PO PRN (20:09)
[2017-10-07] MEDS: SODIUM CHLORIDE 0.9% 1,000 ML IV SCH ×2 (00:01→09:51)
[2017-10-07] MEDS: INSULIN LISPRO 100 UNIT/ML SUBCUT SCH ×2 (09:46→14:04)
[2017-10-07] MEDS: AZTREONAM 1,000 MG in SYRINGE 1 EACH IV SCH (09:48)
[2017-10-07] MEDS: PANTOPRAZOLE 40 MG VIAL IV SCH (09:49)
[2017-10-07] MEDS: LISINOPRIL 20 MG TABLET PO SCH (09:50)
[2017-10-07] MEDS: POLYETHYLENE GLYCOL POWDER 17 GM PACK PO SCH (09:50)
[2017-10-07] MEDS: MAGNESIUM CHLORIDE 64 MG TABLET PO SCH (09:50)
[2017-10-07 10:16] LABS: Hematocrit 32.8 VOL% (35.7-47.0); Hemoglobin 10.5 GM/DL (12.0-16.0)
[2017-10-07] MEDS: hydrALAZINE 20 MG/1 ML VIAL IV PRN (12:20)
[2017-10-07] MEDS ORDERED: FUROSEMIDE 40 MG/4 ML VIAL IV ONE (12:51)
[2017-10-07] MEDS ORDERED: amLODIPine 10 MG TABLET PO SCH (13:00)
[2017-10-07 13:59] VITALS: BP 168/84
== END 2017-10-07 15:04 | disposition swing bed (61) | DRG 811 ==
LOC: EDBD → EDUNIT# → N.ED 11:11 → SUATTDRO 13:25 → N.EDINP 13:25 → N.ICU 15:45 → N.2E 10-04 13:51
PROVIDERS: ADMIT Internal Medicine; ATTEND Internal Medicine